=== PATIENT | male | born 1950 | race Caucasian/White ===

== ENCOUNTER 2018-10-16 13:16 | Day surgery (SDC) | payer OTHER ==
[~2018-10-16] VITALS: Ht 177.8 cm; Wt 93.6 kg
[~2018-10-16 13:16] MED LIST: ACET325 PO; ASPI81CH PO; ASPI81EC PO; DIPATR PO; DIPY75 PO; Depo-Testos200 MG/ML IM; FISH1000 PO; Fludrocortison0.1 MG PO; HYDR1TAB94 PO; Midodrine HCl2.5 MG PO; OMEP20ER; Omeprazole20 M1 PO; ROSU10TA PO; TESTOSTERONE; Tylenol325 MG PO; VITAMIN D31000 UNIT PO; Zofran Odt4 MG SL
[2018-10-16] MEDS ORDERED: VITAMIN D50000 UNIT PO (14:09)
== END 2018-10-16 15:12 | disposition home or self-care (01) ==
LOC: ORSCSDS 13:16
PROVIDERS: Surgery
PROC: 0DBM8ZX Excision of Descending Colon, Via Natural or Artificial Opening Endoscopic, Diagnostic (ICD-10-PCS; principal; 2018-10-16 15:15)
PROC: 0DBK8ZX Excision of Ascending Colon, Via Natural or Artificial Opening Endoscopic, Diagnostic (ICD-10-PCS; principal; 2018-10-16 15:15)
DX: Z12.11 Encounter for screening for malignant neoplasm of colon (principal); D12.2 Benign neoplasm of ascending colon; D12.4 Benign neoplasm of descending colon; Z80.0 Family history of malignant neoplasm of digestive organs; G47.33 Obstructive sleep apnea (adult) (pediatric); E78.00 Pure hypercholesterolemia, unspecified; F32.9 Major depressive disorder, single episode, unspecified; Z79.82 Long term (current) use of aspirin; Z79.899 Other long term (current) drug therapy
CPT/HCPCS: 88305; J2704; J7120

== ENCOUNTER 2018-10-23 05:46 | Day surgery (SDC) | payer OTHER ==
[~2018-10-23] VITALS: Ht 177.8 cm; Wt 93.1 kg
[~2018-10-23 05:46] MED LIST changes: +VITAMIN D50000 UNIT PO
--- NOTE | 2018-10-23 06:27 | NUR ---
History, Chart, Medications and Allergies reviewed before start of procedure. Patient confirms NPO status and agrees with scheduled surgery. Lungs clear T/O to Auscultation. Patient reports completing Chlorhexadine shower X2 prior to admission to hospital. Patient States Post-Procedure ride home has been arranged. Pre-Op teaching done. Pt verbalizes understanding.
--- NOTE | 2018-10-23 07:05 | NUR ---
TRACKER CARD EXPLAINED TO PATIENT FAMILY, OPPORTUNITY FOR QUESTIONS PROVIDED.
--- NOTE | 2018-10-23 07:17 | NUR ---
SCRUM MASTER REPORT COMPLETED AT BEDSIDE WITH MAYO MORGAN RN. PER DR DEAL OK TO LEAVE PATIENT'S CONTACT LENSES IN DURING SURGERY, PATIEN SLEEPS WITH THEM IN NORMALLY.
--- NOTE | 2018-10-23 09:19 | NUR ---
PT TRANSPORTED TO STEP. DENIES ANY ABD PAIN OR NAUSEA. STATES A FEELING OF "TIGHNESS". DRESSING CLEAN, DRY AND INTACT. NO SWELLING NOTED. ABD BINDER IN PLACE.
--- NOTE | 2018-10-23 09:40 | NUR ---
NO CHANGE IN INCISION SITE. ICE PACK PLACED TO ABD.
--- NOTE | 2018-10-23 10:12 | NUR ---
WRITTEN AND VERBAL D/C INSTUCTIONS GIVEN TO PT AND WITH STATED UNDERSTANDING.
--- NOTE | 2018-10-23 10:32 | NUR ---
DR. VELAZQUEZ IN TO SEE PT. INFORMED THAT O2 SATA ON OCCASION DROP TO 89%, BUT QUICKLY RISE BACK INTO 90'S. PT INSTURCTED ON USE OF INCINTIVE SPIROMETER. DR. FLORES STATED OK FOR PT TO GO HOME.
--- NOTE | 2018-10-23 10:44 | NUR ---
PT ATTEMDPTED TOGET UP. FELT LIGHT HEADED AND INCREASE PAIN. WANTED TO LAY BACK DOWN. 2ND PAIN PILL GIVEN.
--- NOTE | 2018-10-23 11:03 | NUR ---
PT WANTED TO ATTEMP TO STAND AGAIN. ABLE TO STAND, BUT STATED ALOT OF PAIN WITH STANDING AND STARTED TO FEEL A LITTLE NAUSEATED, RESOLVED UPON LAYING BACK DOWN.
--- NOTE | 2018-10-23 12:01 | NUR ---
PT FEELING BETTER. PAIN LEVEL 2/10. D/C HOME.
== END 2018-10-23 22:40 | disposition home or self-care (01) ==
LOC: ORSCMMR 05:46 → ORD 07:30 → ORSCMMR 07:30
PROVIDERS: Surgery
PROC: 0WUF0JZ Supplement Abdominal Wall with Synthetic Substitute, Open Approach (ICD-10-PCS; principal; 2018-10-23 07:30)
DX: K43.2 Incisional hernia without obstruction or gangrene (principal); E78.5 Hyperlipidemia, unspecified; G47.33 Obstructive sleep apnea (adult) (pediatric); Z79.899 Other long term (current) drug therapy; Z79.82 Long term (current) use of aspirin
CPT/HCPCS: A9270-GY; C1781; J0690; J1100; J1885; J2250; J2405; J2704; J3010; J7120

== ENCOUNTER 2024-02-12 06:16 | Day surgery (SDC) | payer OTHER ==
[~2024-02-12] VITALS: Ht 177.8 cm; Wt 96.1 kg
[~2024-02-12 06:16] MED LIST changes: +Aspir 8181 MG PO; +COMPAZINE10 MG PO; +Crestor20 MG PO; +MACULAR HEALTH PO; +MAGCIT300 PO; +MULTIPLE VITAM1 EACH PO; +PANT40 PO; +SERT50 PO
[2024-02-12] MEDS ORDERED: Lactated Ringer's 1,000 ML IV ONE ×3 (07:34→07:43)
[2024-02-12] MEDS ORDERED: propofoL 50 ML IV ONE (07:48)
[2024-02-12 08:42] VITALS: BP 105/68
== END 2024-02-12 08:47 | disposition home or self-care (01) ==
LOC: ORSCSDS 06:16
PROVIDERS: Surgery
PROC: 0DBN8ZX Excision of Sigmoid Colon, Via Natural or Artificial Opening Endoscopic, Diagnostic (ICD-10-PCS; principal; 2024-02-12 08:00)
DX: Z12.11 Encounter for screening for malignant neoplasm of colon (principal); Z86.0101 Personal history of adenomatous and serrated colon polyps; Z80.0 Family history of malignant neoplasm of digestive organs; K63.5 Polyp of colon; F32.A Depression, unspecified; G47.33 Obstructive sleep apnea (adult) (pediatric); E78.5 Hyperlipidemia, unspecified; E78.00 Pure hypercholesterolemia, unspecified; E66.9 Obesity, unspecified; Z68.30 Body mass index [BMI] 30.0-30.9, adult; Z79.82 Long term (current) use of aspirin; Z79.899 Other long term (current) drug therapy
CPT/HCPCS: 88305; J2704; J7120